=== PATIENT | male | born 1990 | race Caucasian/White ===

== ENCOUNTER → 2017-09-25 | Outpatient (REF) | payer MEDICAID | LOC: M SFHCPLAZ 09:13 | DX: R63.4 Abnormal weight loss (principal) ==

== ENCOUNTER → 2018-11-23 | Outpatient (REF) | payer MEDICAID | LOC: M SFHCPLAZ 09:14 | DX: R45.5 Hostility (principal) ==

== ENCOUNTER → 2019-02-27 | Outpatient (CLI) | payer MEDICAID ==
[2019-02-27 10:58] LABS: ALBUMIN 4.2 GM/DL (3.2-5.2); ALT/SGPT 56 U/L (12-78); BILIRUBIN,TOTAL 1.5 MG/DL (0.2-1.0); BLOOD UREA NITROGEN 19 MG/DL (7-18); CALCIUM LEVEL 9.5 MG/DL (8.5-10.1); CARBON DIOXIDE LEVEL 28 MEQ/L (21-32); CHLORIDE LEVEL 103 MEQ/L (98-107); CHOLESTEROL LEVEL 201 MG/DL (<200); CHOLESTEROL RISK RATIO 4.902 (<5); CREATININE FOR GFR 1.03 MG/DL (0.70-1.30); GLOMERULAR FILTRATION RATE > 60.0 (>60); GLUCOSE, FASTING 85 MG/DL (70-100); HDL CHOLESTEROL 41 MG/DL (>40); LDL CHOLESTEROL 134 MG/DL (<100); NON-HDL-C 160 MG/DL; POTASSIUM SERUM 4.8 MEQ/L (3.5-5.1); SODIUM LEVEL 139 MEQ/L (136-145); TOTAL PROTEIN 7.3 GM/DL (6.4-8.2); TRIGLYCERIDES LEVEL 128 MG/DL (<150)
[2019-02-27 11:03] LABS: BASO % 0.3 % (0.0-1.0); EOS # 0.2 10^3/uL (0.0-0.5); HEMATOCRIT 53.7 % (42.0-52.0); HEMOGLOBIN 17.6 g/dl (13.5-17.5); LYMPH # 1.7 10^3/uL (1.5-5.0); LYMPH % 27.8 % (24.0-44.0); MEAN CORPUSCULAR HEMOGLOBIN 28.9 pg (27.0-33.0); MEAN CORPUSCULAR HGB CONC 32.8 g/dl (32.0-36.5); MEAN CORPUSCULAR VOLUME 88.3 fl (80.0-96.0); MONO # 0.5 10^3/uL (0.0-0.8); MONO % 8.9 % (0.0-5.0); NEUTROPHILS # 3.6 10^3/uL (1.5-8.5); NEUTROPHILS % 59.7 % (36.0-66.0); PLATELET COUNT, AUTOMATED 142 10^3/uL (150-450); RED BLOOD COUNT 6.08 10^6/uL (4.30-6.10)
[2019-02-27 12:10] LABS: HEMOGLOBIN A1c 5.2 %
== END ==
LOC: M WUC 08:32
PROVIDERS: ATTEND Physician Assistant
DX: F84.0 Autistic disorder (principal)

== ENCOUNTER 2019-04-01 09:58 | Emergency (ER) | payer MEDICAID ==
[~2019-04-01] VITALS: Ht 170.2 cm; Wt 81.8 kg
[2019-04-01] MEDS ORDERED: RISP0.5T21 PO (11:13)
[2019-04-01] MEDS ORDERED: VITAD1000T PO (11:13)
--- NOTE | 2019-04-01 12:02 | REP ---
Left tibia and fibula 12: Four views. History: Inability to bear weight. Nonverbal patient. Findings: Four views of the left tibia and fibula demonstrate normal bones, joints, and soft tissues. No fracture or bony destructive lesion is seen. Impression: Negative radiographs of the left calf. Electronically Signed by Kg Mills MD 04/01/2019 11:54 A
--- NOTE | 2019-04-01 12:03 | REP ---
Left ankle series: Four views. History: Inability to bear weight. Comparison study: September 19, 2015. Findings: Four views of the left ankle demonstrate an intact ankle mortise. No fractures seen. No subluxation noted. Bones and joints are unremarkable. Impression: Negative left ankle radiographs. Electronically Signed by Kg Mills MD 04/01/2019 11:54 A
--- NOTE | 2019-04-01 12:04 | REP ---
Left foot series: Four views. History: Inability to bear weight. Findings: Four views of the left foot demonstrate overall mineralization to be normal. Bones, joints and soft tissues are unremarkable. No fracture, subluxation, periosteal reaction, or other acute bony abnormality. Impression: Negative radiographs of the left foot. Electronically Signed by Kg Mills MD 04/01/2019 11:55 A
[2019-04-01 12:41] VITALS: BP 115/74
== END 2019-04-01 12:42 | disposition home or self-care (01) ==
LOC: M ED 09:58
DX: M79.672 Pain in left foot (principal); F84.0 Autistic disorder; Z79.899 Other long term (current) drug therapy

== ENCOUNTER 2019-10-03 14:08 | Emergency (ER) | payer MEDICAID ==
[~2019-10-03] VITALS: Ht 170.2 cm; Wt 83.2 kg
[~2019-10-03 14:08] MED LIST: D31000TA2 PO; RISP0.5T21 PO
[2019-10-03 17:02] VITALS: BP 123/81
--- NOTE | 2019-10-15 16:28 | REP ---
RIGHT FEMUR SERIES: 4-VIEWS HISTORY: Limping. Unexplained. FINDINGS: Four views of the right femur demonstrate normal bones, joints, and soft tissue. No fracture or other acute abnormality. IMPRESSION: Negative radiographs of the right femur. MTDD
--- NOTE | 2019-10-15 16:30 | REP ---
RIGHT TIB-FIB SERIES: 4-VIEWS HISTORY: Limping. Nonverbal patient. FINDINGS: Four views of the right tibia and fibula demonstrate normal bones, joints, and soft tissues. No fracture or subluxation is seen. IMPRESSION: Negative radiographs of the right tibia-fibula. MTDD
--- NOTE | 2019-10-15 16:32 | REP ---
RIGHT FOOT SERIES: Preliminary report is provided at the time of exam by [facility]. HISTORY: Limping. Nonverbal patient. FINDINGS: Four views of the right foot demonstrate overall normal mineralization. Bones, joints, and soft tissues are unremarkable. No fracture or subluxation is seen. IMPRESSION: Negative views of the right foot. MTDD
== END 2019-10-03 17:08 | disposition home or self-care (01) ==
LOC: M ED 14:08
DX: M79.671 Pain in right foot (principal); F84.0 Autistic disorder

== ENCOUNTER 2019-10-07 16:47 | Emergency (ER) | payer MEDICAID ==
[~2019-10-07] VITALS: Ht 170.2 cm; Wt 85.9 kg
[2019-10-07] MEDS ORDERED: ACETAMINOPHEN 500 MG TAB PO ONE (20:00)
[2019-10-07 21:28] LABS: BASO % 0.3 % (0.0-1.0); EOS # 0.2 10^3/uL (0.0-0.5); EOS % 2.3 % (0.0-3.0); HEMATOCRIT 45.6 % (42.0-52.0); HEMOGLOBIN 15.9 g/dl (13.5-17.5); LYMPH # 1.8 10^3/uL (1.5-5.0); LYMPH % 23.7 % (24.0-44.0); MEAN CORPUSCULAR HEMOGLOBIN 29.8 pg (27.0-33.0); MEAN CORPUSCULAR HGB CONC 34.9 g/dl (32.0-36.5); MEAN CORPUSCULAR VOLUME 85.4 fl (80.0-96.0); MONO # 0.6 10^3/uL (0.0-0.8); MONO % 7.6 % (0.0-5.0); NEUTROPHILS # 4.9 10^3/uL (1.5-8.5); NEUTROPHILS % 65.6 % (36.0-66.0); PLATELET COUNT, AUTOMATED 141 10^3/uL (150-450); RED BLOOD COUNT 5.34 10^6/uL (4.30-6.10); WHITE BLOOD COUNT 7.5 10^3/uL (4.0-10.0)
[2019-10-07 21:56] LABS: BLOOD UREA NITROGEN 17 MG/DL (7-18); C REACTIVE PROTEIN QUANTITATIV 3.54 MG/DL (0.00-0.30); CARBON DIOXIDE LEVEL 28 MEQ/L (21-32); CHLORIDE LEVEL 102 MEQ/L (98-107); CREATININE FOR GFR 0.84 MG/DL (0.70-1.30); GLOMERULAR FILTRATION RATE > 60.0 (>60); GLUCOSE, FASTING 239 MG/DL (70-100); POTASSIUM SERUM 3.5 MEQ/L (3.5-5.1); SODIUM LEVEL 135 MEQ/L (136-145)
[2019-10-07 22:10] LABS: ERYTHROCYTE SEDIMENTATION RATE 5 mm/hr (0-15)
[2019-10-07 22:55] VITALS: BP 124/72
--- NOTE | 2019-10-15 16:34 | REP ---
CT RIGHT FOOT HISTORY: Swelling. Will not bear weight. COMPARISON: Plain films 10/03/2019. FINDINGS: Axial CT imaging of the right foot is performed with sagittal and coronal reconstruction images. The study is limited due to patient motion. There are particularly limitations in the evaluation of the metatarsals and phalanges with extensive blurring of these structures. Subtle fracture of the metatarsals and phalanges cannot totally be excluded. Otherwise no acute fracture or dislocation is seen. There is some erosive change at the proximal articular surface of the navicular bone, at the talonavicular joint. Subchondral cystic changes are noted with diameter of approximately 1 cm. The diameter of the articular surface involved is approximately 6 mm. There is mild soft tissue edema in the region of the heel. A preliminary report was provided by [facility] at the time of the exam. [facility]
--- NOTE | 2019-10-16 12:56 | ED PDOC ---
Post-Departure Follow-Up ish albarran and tito faxed formal report of ct foot for fu Kat Castaneda MD Oct 16, 2019 12:56
== END 2019-10-07 22:54 | disposition home or self-care (01) ==
LOC: M ED 16:47
DX: M25.571 Pain in right ankle and joints of right foot (principal); R22.41 Localized swelling, mass and lump, right lower limb; F84.0 Autistic disorder; Z79.899 Other long term (current) drug therapy

== ENCOUNTER → 2020-07-22 | Outpatient (REF) | payer MEDICAID ==
[2020-07-22 11:24] LABS: BASO % 0.2 % (0.0-1.0); EOS # 0.1 10^3/uL (0.0-0.5); EOS % 1.4 % (0.0-3.0); HEMATOCRIT 52.5 % (42.0-52.0); HEMOGLOBIN 17.2 g/dl (13.5-17.5); LYMPH # 1.3 10^3/uL (1.5-5.0); LYMPH % 22.1 % (24.0-44.0); MEAN CORPUSCULAR HEMOGLOBIN 28.9 pg (27.0-33.0); MEAN CORPUSCULAR HGB CONC 32.8 g/dl (32.0-36.5); MEAN CORPUSCULAR VOLUME 88.1 fl (80.0-96.0); MONO # 0.5 10^3/uL (0.0-0.8); MONO % 8.4 % (2.0-8.0); NEUTROPHILS # 3.9 10^3/uL (1.5-8.5); NEUTROPHILS % 67.5 % (36.0-66.0); PLATELET COUNT, AUTOMATED 153 10^3/uL (150-450); RED BLOOD COUNT 5.96 10^6/uL (4.30-6.10); WHITE BLOOD COUNT 5.7 10^3/uL (4.0-10.0)
[2020-07-22 12:06] LABS: ALBUMIN 4.1 GM/DL (3.2-5.2); ALT/SGPT 42 U/L (12-78); BILIRUBIN,TOTAL 1.3 MG/DL (0.2-1.0); BLOOD UREA NITROGEN 14 MG/DL (7-18); CALCIUM LEVEL 9.7 MG/DL (8.5-10.1); CARBON DIOXIDE LEVEL 32 MEQ/L (21-32); CHLORIDE LEVEL 101 MEQ/L (98-107); CHOLESTEROL LEVEL 157 MG/DL (<200); CHOLESTEROL RISK RATIO 4.243 (<5); CREATININE FOR GFR 0.89 MG/DL (0.70-1.30); GLOMERULAR FILTRATION RATE > 60.0 (>60); GLUCOSE, FASTING 88 MG/DL (70-100); HDL CHOLESTEROL 37 MG/DL (>40); LDL CHOLESTEROL 98 MG/DL (<100); NON-HDL-C 120 MG/DL; POTASSIUM SERUM 4.8 MEQ/L (3.5-5.1); SODIUM LEVEL 138 MEQ/L (136-145); TOTAL PROTEIN 7.4 GM/DL (6.4-8.2); TRIGLYCERIDES LEVEL 112 MG/DL (<150)
[2020-07-22 12:09] LABS: PROLACTIN 13.8 NG/ML (2.1-17.7)
[2020-07-22 12:56] LABS: HEMOGLOBIN A1c 5.1 %
== END ==
LOC: M LABDRWAD 10:21
PROVIDERS: ATTEND Physician Assistant
DX: Z79.899 Other long term (current) drug therapy (principal)

== ENCOUNTER → 2021-07-16 | Outpatient (REF) | payer MEDICAID ==
[~2021-07-16] MED LIST changes: -D31000TA2 PO; +VITA100093 PO
[2021-07-16 13:59] LABS: ALBUMIN 4.1 GM/DL (3.2-5.2); ALT/SGPT 107 U/L (12-78); BILIRUBIN,TOTAL 1.1 MG/DL (0.2-1.0); BLOOD UREA NITROGEN 18 MG/DL (7-18); CALCIUM LEVEL 10.6 MG/DL (8.5-10.1); CARBON DIOXIDE LEVEL 27 MEQ/L (21-32); CHLORIDE LEVEL 103 MEQ/L (98-107); CHOLESTEROL LEVEL 188 MG/DL (<200); CHOLESTEROL RISK RATIO 5.875 (<5); CREATININE FOR GFR 1.06 MG/DL (0.70-1.30); GLOMERULAR FILTRATION RATE > 60.0 (>60); GLUCOSE, FASTING 99 MG/DL (70-100); HDL CHOLESTEROL 32 MG/DL (>40); LDL CHOLESTEROL 110 MG/DL (<100); NON-HDL-C 156 MG/DL; POTASSIUM SERUM 4.3 MEQ/L (3.5-5.1); SODIUM LEVEL 139 MEQ/L (136-145); TOTAL PROTEIN 7.4 GM/DL (6.4-8.2); TRIGLYCERIDES LEVEL 231 MG/DL (<150)
== END ==
LOC: M SFHCADAM 08:46
PROVIDERS: ATTEND Student in an Organized Health Care Education/Training Program
DX: Z79.899 Other long term (current) drug therapy (principal)

== ENCOUNTER → 2021-08-03 | Outpatient (CLI) | payer MEDICAID ==
[2021-08-03 08:52] LABS: ALT/SGPT 102 U/L (12-78); BILIRUBIN,TOTAL 1.3 MG/DL (0.2-1.0); BLOOD UREA NITROGEN 14 MG/DL (7-18); CALCIUM LEVEL 10.4 MG/DL (8.5-10.1); CARBON DIOXIDE LEVEL 29 MEQ/L (21-32); CHLORIDE LEVEL 105 MEQ/L (98-107); CHOLESTEROL LEVEL 206 MG/DL (<200); CHOLESTEROL RISK RATIO 6.645 (<5); CREATININE FOR GFR 1.06 MG/DL (0.70-1.30); GLOMERULAR FILTRATION RATE > 60.0 (>60); GLUCOSE, FASTING 101 MG/DL (70-100); HDL CHOLESTEROL 31 MG/DL (>40); LDL CHOLESTEROL 110 MG/DL (<100); NON-HDL-C 175 MG/DL; POTASSIUM SERUM 4.5 MEQ/L (3.5-5.1); SODIUM LEVEL 141 MEQ/L (136-145); TOTAL PROTEIN 7.4 GM/DL (6.4-8.2); TRIGLYCERIDES LEVEL 326 MG/DL (<150)
== END ==
LOC: M RAD 07:46
PROVIDERS: ATTEND Student in an Organized Health Care Education/Training Program
DX: R74.01 Elevation of levels of liver transaminase levels (principal)

== ENCOUNTER 2021-08-25 22:34 | Emergency (ER) | payer MEDICAID ==
[~2021-08-25] VITALS: Ht 167.6 cm; Wt 84.5 kg
[2021-08-26 04:12] LABS: BASO % 0.3 % (0.0-1.0); EOS # 0.1 10^3/uL (0.0-0.5); EOS % 1.2 % (0.0-3.0); HEMATOCRIT 48.7 % (42.0-52.0); HEMOGLOBIN 16.8 g/dl (13.5-17.5); LYMPH % 17.9 % (24.0-44.0); MEAN CORPUSCULAR HEMOGLOBIN 29.5 pg (27.0-33.0); MEAN CORPUSCULAR HGB CONC 34.5 g/dl (32.0-36.5); MEAN CORPUSCULAR VOLUME 85.6 fl (80.0-96.0); MONO # 0.9 10^3/uL (0.0-0.8); MONO % 8.3 % (2.0-8.0); NEUTROPHILS # 8.1 10^3/uL (1.5-8.5); NEUTROPHILS % 71.8 % (36.0-66.0); PLATELET COUNT, AUTOMATED 143 10^3/uL (150-450); RED BLOOD COUNT 5.69 10^6/uL (4.30-6.10); WHITE BLOOD COUNT 11.2 10^3/uL (4.0-10.0)
[2021-08-26 04:50] LABS: ALT/SGPT 62 U/L (12-78); BILIRUBIN,DIRECT 0.3 MG/DL (0.0-0.2); BILIRUBIN,TOTAL 1.5 MG/DL (0.2-1.0); BLOOD UREA NITROGEN 21 MG/DL (7-18); CALCIUM LEVEL 9.9 MG/DL (8.5-10.1); CARBON DIOXIDE LEVEL 32 MEQ/L (21-32); CHLORIDE LEVEL 100 MEQ/L (98-107); CREATININE FOR GFR 1.04 MG/DL (0.70-1.30); GLOMERULAR FILTRATION RATE > 60.0 (>60); GLUCOSE, FASTING 99 MG/DL (70-100); SODIUM LEVEL 138 MEQ/L (136-145); TOTAL PROTEIN 7.4 GM/DL (6.4-8.2)
[2021-08-26 12:10] VITALS: BP 111/72
[2021-08-26] MEDS ORDERED: PANTOPRAZOLE 40MG VIAL IV ONE (12:45)
[2021-08-26] MEDS ORDERED: ISOVUE-370 76% 100ML VIAL As Ordered ONE (14:41)
[2021-08-26] MEDS ORDERED: KETOROLAC 30 MG/ML 1ML VIAL IV ONE (15:40)
[2021-08-26] MEDS ORDERED: NS 1,000 ML IV ONE (15:45)
[2021-08-26] MEDS ORDERED: LIPI20TA PO (17:02)
[2021-08-26] MEDS ORDERED: HOME MED LIST COMPLETE! XX SCH (17:05)
[2021-08-26] MEDS ORDERED: DOXYCYCLINE HYCLATE 100 MG in D5W MINI-BAG PLUS 100 ML IV ONE (17:20)
[2021-08-26] MEDS ORDERED: DOXY-443 PO (17:24)
[2021-08-26] MEDS ORDERED: OMEP-173 PO (17:50)
== END 2021-08-26 19:16 | disposition home or self-care (01) ==
LOC: M ED 22:34
DX: J18.9 Pneumonia, unspecified organism (principal); K21.9 Gastro-esophageal reflux disease without esophagitis; R00.0 Tachycardia, unspecified; Z79.02 Long term (current) use of antithrombotics/antiplatelets; Z79.899 Other long term (current) drug therapy
CPT/HCPCS: 71046; 71275; 74177; 80048; 80076; 83605; 84443; 85025; 85379; 87040; 87486; 87581; 87633; 87798; 93005; 96365; 96366; 96375; 99284; C9113; J1885; Q9967

== ENCOUNTER → 2021-09-02 | Outpatient (REF) | payer MEDICAID ==
[~2021-09-02] MED LIST changes: +DOXY-443 PO; +LIPI20TA PO; +OMEP-173 PO
[2021-09-02 10:32] LABS: HEMATOCRIT 49.2 % (42.0-52.0); MEAN CORPUSCULAR HEMOGLOBIN 29.1 pg (27.0-33.0); MEAN CORPUSCULAR HGB CONC 34.6 g/dl (32.0-36.5); MEAN CORPUSCULAR VOLUME 84.1 fl (80.0-96.0); PLATELET COUNT, AUTOMATED 163 10^3/uL (150-450); RED BLOOD COUNT 5.85 10^6/uL (4.30-6.10); WHITE BLOOD COUNT 7.1 10^3/uL (4.0-10.0)
[2021-09-02 11:08] LABS: ALBUMIN 3.9 GM/DL (3.2-5.2); ALT/SGPT 80 U/L (12-78); BILIRUBIN,DIRECT 0.2 MG/DL (0.0-0.2); CALCIUM LEVEL 10.3 MG/DL (8.5-10.1); PHOSPHORUS LEVEL 2.8 MG/DL (2.5-4.9); TOTAL PROTEIN 7.2 GM/DL (6.4-8.2)
[2021-09-02 11:23] LABS: HEPATITIS B SURFACE ANTIBODY POSITIVE (POSITIVE); PTH INTACT 28.1 PG/ML (18.5-88.0); TOTAL 25(OH) VITAMIN D 27.8 NG/ML (30.0-100.0)
[2021-09-02 11:35] LABS: HEPATITIS B SURFACE ANTIGEN NEGATIVE (NEGATIVE)
[2021-09-02 11:59] LABS: HEPATITIS C VIRUS ABY INDEX < 0.0 INDEX (<0.8)
[2021-09-02 12:02] LABS: HEPATITIS B CORE ANTIBODY IGM NEGATIVE (NEGATIVE)
[2021-09-03 13:10] LABS: HEPATITIS C QUANTITATION HCV Not Detected IU/mL (.)
== END ==
LOC: M SFHCADAM 08:32
PROVIDERS: ATTEND Student in an Organized Health Care Education/Training Program
DX: E83.52 Hypercalcemia (principal); R74.01 Elevation of levels of liver transaminase levels

== ENCOUNTER → 2022-02-15 | Outpatient (REF) | payer MEDICAID ==
[2022-02-17 15:09] LABS: VITAMIN D 1,25 DIHYDROXY 46.8 pg/mL (24.8-81.5)
== END ==
LOC: M SFHCPLAZ 09:26
PROVIDERS: ATTEND Family Medicine
DX: E83.52 Hypercalcemia (principal)

== ENCOUNTER → 2022-09-23 | Outpatient (REF) | payer MEDICAID | LOC: M SFHCPLAZ 11:46 | PROVIDERS: ATTEND Family Medicine | DX: E78.1 Pure hyperglyceridemia (principal); E55.9 Vitamin D deficiency, unspecified; Z13.1 Encounter for screening for diabetes mellitus; K76.0 Fatty (change of) liver, not elsewhere classified ==

== ENCOUNTER → 2023-02-21 | Outpatient (CLI) | payer MEDICAID ==
[2023-02-21 15:15] LABS: BASO % 0.3 % (0.0-1.0); EOS # 0.2 10^3/uL (0.0-0.5); EOS % 3.3 % (0.0-3.0); HEMATOCRIT 50.5 % (42.0-52.0); HEMOGLOBIN 17.2 g/dl (13.5-17.5); LYMPH # 2.3 10^3/uL (1.5-5.0); LYMPH % 32.3 % (24.0-44.0); MEAN CORPUSCULAR HEMOGLOBIN 28.9 pg (27.0-33.0); MEAN CORPUSCULAR HGB CONC 34.1 g/dl (32.0-36.5); MEAN CORPUSCULAR VOLUME 84.9 fl (80.0-96.0); MONO # 0.6 10^3/uL (0.0-0.8); MONO % 7.8 % (2.0-8.0); NEUTROPHILS # 3.9 10^3/uL (1.5-8.5); NEUTROPHILS % 55.9 % (36.0-66.0); PLATELET COUNT, AUTOMATED 141 10^3/uL (150-450); RED BLOOD COUNT 5.95 10^6/uL (4.30-6.10)
[2023-02-21 15:37] LABS: HEMOGLOBIN A1c 5.8 % (4.0-6.0)
[2023-02-21 15:45] LABS: PROLACTIN 12.06 NG/ML (2.1-17.7)
[2023-02-21 15:47] LABS: ALBUMIN 4.1 G/DL (3.2-5.2); ALKALINE PHOSPHATASE 132 U/L (46-116); ALT/SGPT 73 U/L (7.0-40); AST/SGOT 32 U/L (<34); BILIRUBIN,TOTAL 1.3 MG/DL (0.3-1.2); BLOOD UREA NITROGEN 22 MG/DL (9-23); CALCIUM LEVEL 9.7 MG/DL (8.5-10.1); CARBON DIOXIDE LEVEL 31 MMOL/L (20-31); CHLORIDE LEVEL 105 MMOL/L (98-107); CHOLESTEROL LEVEL 144 MG/DL (<200); CHOLESTEROL RISK RATIO 4.58 (<5); CREATININE FOR GFR 0.95 MG/DL (0.70-1.30); GLOMERULAR FILTRATION RATE > 60.0 (>60); GLUCOSE, FASTING 97 MG/DL (60-100); HDL CHOLESTEROL 31.4 MG/DL (>40); NON-HDL-C 112.6 MG/DL; POTASSIUM SERUM 4.2 MMOL/L (3.5-5.1); SODIUM LEVEL 141 MMOL/L (136-145); TOTAL PROTEIN 6.8 G/DL (5.7-8.2); TRIGLYCERIDES LEVEL 243 MG/DL (<150)
== END ==
LOC: M PLALAB 09:06
PROVIDERS: ATTEND Physician Assistant
DX: Z79.899 Other long term (current) drug therapy (principal)

== ENCOUNTER → 2023-07-18 | Outpatient (REF) | payer MEDICAID ==
[~2023-07-18] MED LIST changes: +DOXY-323 PO; -DOXY-443 PO
[2023-07-18 15:13] LABS: THYROID STIMULATING HORMONE 2.199 uIU/ML (0.55-4.78); TOTAL 25(OH) VITAMIN D 36.9 NG/ML (20.0-100.0)
[2023-07-18 15:23] LABS: ALBUMIN 3.8 G/DL (3.2-5.2); ALKALINE PHOSPHATASE 148 U/L (46-116); ALT/SGPT 81 U/L (7.0-40); AST/SGOT 38 U/L (<34); BILIRUBIN,TOTAL 1.1 MG/DL (0.3-1.2); BLOOD UREA NITROGEN 15 MG/DL (9-23); CALCIUM LEVEL 10.2 MG/DL (8.5-10.1); CARBON DIOXIDE LEVEL 28 MMOL/L (20-31); CHLORIDE LEVEL 103 MMOL/L (98-107); CHOLESTEROL LEVEL 126 MG/DL (<200); CHOLESTEROL RISK RATIO 4.14 (<5); CREATININE FOR GFR 0.82 MG/DL (0.70-1.30); GLOMERULAR FILTRATION RATE > 60.0 (>60); GLUCOSE, FASTING 112 MG/DL (60-100); HDL CHOLESTEROL 30.4 MG/DL (>40); LDL CHOLESTEROL 42.6 MG/DL (<100); NON-HDL-C 95.6 MG/DL; SODIUM LEVEL 141 MMOL/L (136-145); TOTAL PROTEIN 6.8 G/DL (5.7-8.2); TRIGLYCERIDES LEVEL 265 MG/DL (<150)
== END ==
LOC: M SFHCADAM 08:37
PROVIDERS: ATTEND Physician Assistant Medical
DX: E78.1 Pure hyperglyceridemia (principal); K76.0 Fatty (change of) liver, not elsewhere classified; E55.9 Vitamin D deficiency, unspecified

== ENCOUNTER → 2023-08-24 | Outpatient (CLI) | payer MEDICAID | LOC: M RAD 09:29 | PROVIDERS: ATTEND Physician Assistant Medical | DX: K76.0 Fatty (change of) liver, not elsewhere classified (principal); R79.89 Other specified abnormal findings of blood chemistry ==

== ENCOUNTER → 2023-11-09 | Outpatient (REF) | payer MEDICAID ==
[~2023-11-09] MED LIST changes: -DOXY-323 PO; +DOXY-441 PO
[2023-11-09 18:45] LABS: URIC ACID 9.9 MG/DL (3.7-9.2)
[2023-11-09 18:47] LABS: C REACTIVE PROTEIN QUANTITATIV 0.9 MG/DL (<1.0)
== END ==
LOC: M SFHCADAM 13:25
PROVIDERS: ATTEND Physician Assistant Medical
DX: M25.571 Pain in right ankle and joints of right foot (principal)

== ENCOUNTER → 2023-11-09 | Outpatient (CLI) | payer MEDICAID | LOC: M ADAMS 13:35 | PROVIDERS: ATTEND Physician Assistant Medical | DX: M25.571 Pain in right ankle and joints of right foot (principal) ==

== ENCOUNTER → 2023-11-27 | Outpatient (REF) | payer MEDICAID ==
[2023-11-27 12:56] LABS: LIPASE 42 U/L (12-53)
[2023-11-27 12:57] LABS: FREE T4 1.74 NG/DL (0.89-1.76); THYROID STIMULATING HORMONE 1.232 uIU/ML (0.55-4.78)
[2023-11-27 12:58] LABS: ALBUMIN 3.8 G/DL (3.2-5.2); ALKALINE PHOSPHATASE 154 U/L (46-116); ALT/SGPT 128 U/L (7.0-40); AST/SGOT 60 U/L (<34); BILIRUBIN,TOTAL 1.1 MG/DL (0.3-1.2); BLOOD UREA NITROGEN 17 MG/DL (9-23); CALCIUM LEVEL 11.1 MG/DL (8.5-10.1); CARBON DIOXIDE LEVEL 32 MMOL/L (20-31); CHLORIDE LEVEL 102 MMOL/L (98-107); CREATININE FOR GFR 0.89 MG/DL (0.70-1.30); GLOMERULAR FILTRATION RATE > 60.0 (>60); GLUCOSE, FASTING 120 MG/DL (60-100); POTASSIUM SERUM 3.9 MMOL/L (3.5-5.1); SODIUM LEVEL 140 MMOL/L (136-145); TOTAL PROTEIN 7.1 G/DL (5.7-8.2)
[2023-11-27 12:59] LABS: TOTAL 25(OH) VITAMIN D 40.1 NG/ML (20.0-100.0)
[2023-11-27 13:00] LABS: BASO % 0.3 % (0.0-1.0); EOS # 0.1 10^3/uL (0.0-0.5); EOS % 1.7 % (0.0-3.0); LYMPH # 1.5 10^3/uL (1.5-5.0); LYMPH % 21.5 % (24.0-44.0); MEAN CORPUSCULAR HEMOGLOBIN 28.2 pg (27.0-33.0); MEAN CORPUSCULAR HGB CONC 33.3 g/dl (32.0-36.5); MEAN CORPUSCULAR VOLUME 84.5 fl (80.0-96.0); MONO # 0.7 10^3/uL (0.0-0.8); MONO % 9.4 % (2.0-8.0); NEUTROPHILS # 4.6 10^3/uL (1.5-8.5); NEUTROPHILS % 66.7 % (36.0-66.0); PLATELET COUNT, AUTOMATED 130 10^3/uL (150-450); RED BLOOD COUNT 5.68 10^6/uL (4.30-6.10); WHITE BLOOD COUNT 6.9 10^3/uL (4.0-10.0)
[2023-11-27 13:04] LABS: URIC ACID 8.2 MG/DL (3.7-9.2)
[2023-11-27 13:12] LABS: ERYTHROCYTE SEDIMENTATION RATE 30 mm/hr (0-15)
== END ==
LOC: M SFHCADAM 10:03
PROVIDERS: ATTEND Physician Assistant Medical
DX: M10.071 Idiopathic gout, right ankle and foot (principal); K76.0 Fatty (change of) liver, not elsewhere classified; K82.8 Other specified diseases of gallbladder; M25.571 Pain in right ankle and joints of right foot

== ENCOUNTER 2023-12-27 16:29 | Emergency (ER) | payer MEDICAID ==
[2023-12-27 17:49] LABS: BASO % 0.2 % (0.0-1.0); EOS % 0.2 % (0.0-3.0); HEMATOCRIT 48.4 % (42.0-52.0); HEMOGLOBIN 16.6 g/dl (13.5-17.5); LYMPH # 1.1 10^3/uL (1.5-5.0); MEAN CORPUSCULAR HEMOGLOBIN 28.5 pg (27.0-33.0); MEAN CORPUSCULAR HGB CONC 34.3 g/dl (32.0-36.5); MONO # 0.5 10^3/uL (0.0-0.8); MONO % 2.9 % (2.0-8.0); NEUTROPHILS # 16.3 10^3/uL (1.5-8.5); NEUTROPHILS % 90.2 % (36.0-66.0); PLATELET COUNT, AUTOMATED 169 10^3/uL (150-450); RED BLOOD COUNT 5.83 10^6/uL (4.30-6.10); WHITE BLOOD COUNT 18.1 10^3/uL (4.0-10.0)
[2023-12-27 18:07] LABS: INR 1.06; PROTHROMBIN TIME 14.2 SECONDS (12.5-14.5)
[2023-12-27 18:10] LABS: ALBUMIN 3.3 G/DL (3.2-5.2); ALKALINE PHOSPHATASE 111 U/L (40-129); ALT/SGPT 57 U/L (7.0-40); AST/SGOT 28 U/L (<34); BILIRUBIN,DIRECT 0.5 MG/DL (<0.4); BILIRUBIN,TOTAL 1.8 MG/DL (0.3-1.2); BLOOD UREA NITROGEN 22 MG/DL (9-23); CALCIUM LEVEL 9.6 MG/DL (8.5-10.1); CARBON DIOXIDE LEVEL 29 MMOL/L (20-31); CHLORIDE LEVEL 100 MMOL/L (98-107); CREATININE FOR GFR 0.99 MG/DL (0.70-1.30); GLOMERULAR FILTRATION RATE > 60.0 (>60); GLUCOSE, FASTING 183 MG/DL (60-100); POTASSIUM SERUM 4.4 MMOL/L (3.5-5.1); SODIUM LEVEL 139 MMOL/L (136-145)
[2023-12-27] MEDS ORDERED: ISOVUE-370 76% 100ML VIAL As Ordered ONE (18:56)
[2023-12-28 00:22] VITALS: O2SAT 95
[2023-12-28 00:30] VITALS: BP 118/70; TEMP 97.9; O2SAT 93
== END 2023-12-28 00:38 | disposition home or self-care (01) ==
LOC: M ED 16:29 → EDBD 16:29 → M ED 12-28 00:38
DX: R05.9 Cough, unspecified (principal); L30.9 Dermatitis, unspecified; R00.0 Tachycardia, unspecified; F84.0 Autistic disorder; E78.5 Hyperlipidemia, unspecified; Z79.02 Long term (current) use of antithrombotics/antiplatelets; Z79.899 Other long term (current) drug therapy
CPT/HCPCS: 36415; 71045; 71275; 80048; 80076; 85025; 85610; 87486; 87581; 87633; 87798; 93005; 93041; 94760; 99285; Q9967

== ENCOUNTER → 2023-12-27 | Outpatient (REF) | payer MEDICAID | LOC: M SFHCADAM 12:58 | PROVIDERS: ATTEND Physician Assistant | DX: A41.9 Sepsis, unspecified organism (principal); R65.10 Systemic inflammatory response syndrome (SIRS) of non-infectious origin without acute organ dysfunction ==

== ENCOUNTER → 2024-01-12 | Outpatient (REF) | payer MEDICAID | LOC: M LAB REF 21:32 | PROVIDERS: ATTEND Physician Assistant Medical | DX: B34.9 Viral infection, unspecified (principal) ==

== ENCOUNTER 2024-01-24 11:50 | Observation (INO) | payer MEDICAID ==
[~2024-01-24] VITALS: Ht 170.2 cm; Wt 84.1 kg
[2024-01-24 12:42] LABS: ABG BASE EXCESS 5.1 (-2.0-2.0); ABG HCO3 28.8 MMOL/L (22.0-26.0); ABG O2 SATURATION 91.7 % (95.0-99.0); ABG PARTIAL PRESSURE CO2 39.4 mmHg (35.0-45.0); ABG PARTIAL PRESSURE O2 60.5 mmHg (75.0-100.0); ABG STANDARD HCO3 28.8 MMOL/L. (22.0-26.0); ABG pH (ARTERIAL) 7.482 UNITS (7.350-7.450)
[2024-01-24 15:28] LABS: BASO % 0.2 % (0.0-1.0); EOS # 0.1 10^3/uL (0.0-0.5); EOS % 0.3 % (0.0-3.0); HEMATOCRIT 50.2 % (42.0-52.0); HEMOGLOBIN 16.9 g/dl (13.5-17.5); LYMPH # 3.1 10^3/uL (1.5-5.0); LYMPH % 17.4 % (24.0-44.0); MEAN CORPUSCULAR HEMOGLOBIN 28.3 pg (27.0-33.0); MEAN CORPUSCULAR HGB CONC 33.7 g/dl (32.0-36.5); MEAN CORPUSCULAR VOLUME 84.1 fl (80.0-96.0); MONO # 1.1 10^3/uL (0.0-0.8); MONO % 6.2 % (2.0-8.0); NEUTROPHILS # 13.3 10^3/uL (1.5-8.5); NEUTROPHILS % 74.9 % (36.0-66.0); PLATELET COUNT, AUTOMATED 198 10^3/uL (150-450); RED BLOOD COUNT 5.97 10^6/uL (4.30-6.10); WHITE BLOOD COUNT 17.8 10^3/uL (4.0-10.0)
[2024-01-24 15:59] LABS: BLOOD UREA NITROGEN 25 MG/DL (9-23); CALCIUM LEVEL 10.1 MG/DL (8.5-10.1); CARBON DIOXIDE LEVEL 34 MMOL/L (20-31); CHLORIDE LEVEL 98 MMOL/L (98-107); CREATININE FOR GFR 0.84 MG/DL (0.70-1.30); GLOMERULAR FILTRATION RATE > 60.0 (>60); GLUCOSE, FASTING 104 MG/DL (60-100); POTASSIUM SERUM 3.6 MMOL/L (3.5-5.1); SODIUM LEVEL 143 MMOL/L (136-145)
[2024-01-24] MEDS: DOXYCYCLINE HYCLATE 100MG TABLET PO ONE (16:25)
[2024-01-24] MEDS: cefTRIAXone SOD 1 GM in DEXTROSE 5% (D5W) ADV/MINI-BAG 50 ML IV ONE (16:26)
[2024-01-24] MEDS: LR 1,000 ML IV ONE (17:02)
[2024-01-24] MEDS ORDERED: D 1010004 PO (17:03)
[2024-01-24] MEDS ORDERED: NYST1POW3 TOP (17:03)
[2024-01-24] MEDS ORDERED: ALLO100T PO (17:03)
[2024-01-24] MEDS ORDERED: IBUP200T46 PO (17:03)
[2024-01-24] MEDS ORDERED: OMEG10002 PO (17:03)
[2024-01-24] MEDS ORDERED: OMEP-173 PO (17:03)
[2024-01-24] MEDS ORDERED: HOME MED LIST COMPLETE! XX SCH (17:05)
[2024-01-24 17:37] LABS: PROCALCITONIN 0.05 ng/ml
[2024-01-24] MEDS: ATORVASTATIN 20 MG TAB PO SCH (21:20)
[2024-01-24] MEDS: BENZONATATE 100MG CAPSULE PO SCH (21:20)
[2024-01-24] MEDS: PIPERACILLIN/TAZOBACTAM SOD 3.375 GM in DEXTROSE 5% (D5W) ADV/MINI-BAG 50 ML IV SCH (21:21)
[2024-01-24] MEDS: allopurinoL 100 MG TAB PO SCH (21:21)
[2024-01-24] MEDS: OMEPRAZOLE 20MG CAP PO SCH (21:21)
[2024-01-24] MEDS: risperiDONE 0.5 MG TAB PO SCH (21:24)
[2024-01-24 21:33] VITALS: BP 131/94; TEMP 98.4; O2SAT 93
[2024-01-24] MEDS: DEXTROMETHORPHAN 60MG/10ML SUSP 90ML BTL(DELSYM) PO PRN (22:49)
[2024-01-24] MEDS: IPRATROPIUM 0.5MG/ALBUTEROL 2.5MG INH SOL UD 3ML (DUONEB) NEB PRN (22:56)
[2024-01-25] MEDS ORDERED: RAMELTEON 8 MG TAB (ROZEREM) PO PRN (01:55)
[2024-01-25 04:46] VITALS: BP 109/69; TEMP 97.7; O2SAT 92
[2024-01-25 06:47] LABS: HEMATOCRIT 47.6 % (42.0-52.0); HEMOGLOBIN 15.9 g/dl (13.5-17.5); MEAN CORPUSCULAR HEMOGLOBIN 27.9 pg (27.0-33.0); MEAN CORPUSCULAR HGB CONC 33.4 g/dl (32.0-36.5); MEAN CORPUSCULAR VOLUME 83.7 fl (80.0-96.0); PLATELET COUNT, AUTOMATED 155 10^3/uL (150-450); RED BLOOD COUNT 5.69 10^6/uL (4.30-6.10); WHITE BLOOD COUNT 8.9 10^3/uL (4.0-10.0)
[2024-01-25 07:17] LABS: BLOOD UREA NITROGEN 21 MG/DL (9-23); CALCIUM LEVEL 9.2 MG/DL (8.5-10.1); CARBON DIOXIDE LEVEL 34 MMOL/L (20-31); CHLORIDE LEVEL 100 MMOL/L (98-107); GLOMERULAR FILTRATION RATE > 60.0 (>60); GLUCOSE, FASTING 106 MG/DL (60-100); POTASSIUM SERUM 3.7 MMOL/L (3.5-5.1); SODIUM LEVEL 141 MMOL/L (136-145)
[2024-01-25] MEDS: DOXYCYCLINE HYCLATE 100MG TABLET PO SCH (08:45)
[2024-01-25] MEDS: ENOXAPARIN 40MG/0.4ML SYRINGE (J1650 PER 10MG) SC SCH (08:46)
[2024-01-25] MEDS ORDERED: AMOX875T2 PO (11:49)
[2024-01-25] MEDS ORDERED: ROBI1LIQ9 PO (11:49)
[2024-01-25] MEDS ORDERED: DOXY-440 PO (11:49)
[2024-01-25 12:00] VITALS: BP 118/88; TEMP 97.9; O2SAT 93
== END 2024-01-25 12:30 | disposition home or self-care (01) ==
LOC: M ED 11:50 → M ED INP 11:51 → M MS5PR 21:00
PROVIDERS: ADMIT Internal Medicine; ATTEND Internal Medicine
DX: J18.9 Pneumonia, unspecified organism (principal); R09.02 Hypoxemia; F84.0 Autistic disorder; F79 Unspecified intellectual disabilities; F91.3 Oppositional defiant disorder; K75.81 Nonalcoholic steatohepatitis (NASH); M10.9 Gout, unspecified; K21.9 Gastro-esophageal reflux disease without esophagitis; E78.5 Hyperlipidemia, unspecified; Z79.899 Other long term (current) drug therapy; Z79.2 Long term (current) use of antibiotics
CPT/HCPCS: 36415; 36600; 71045; 71250; 80048; 82803; 83605; 84145; 85025; 85027; 87040; 87486; 87581; 87633; 87641; 87798; 92610; 96365; 96366; 96367; 96372; 96375; 99215; 99285; J0696; J1650; J2543

== ENCOUNTER → 2024-02-08 | Outpatient (REF) | payer MEDICAID ==
[~2024-02-08] MED LIST changes: +ALLO100T PO; +AMOX875T2 PO; +D 1010004 PO; +DOXY-440 PO; +IBUP200T46 PO; +NYST1POW3 TOP; +OMEG10002 PO; +ROBI1LIQ9 PO
[2024-02-08 17:39] LABS: HEMATOCRIT 47.9 % (42.0-52.0); HEMOGLOBIN 16.1 g/dl (13.5-17.5); MEAN CORPUSCULAR HEMOGLOBIN 28.5 pg (27.0-33.0); MEAN CORPUSCULAR HGB CONC 33.6 g/dl (32.0-36.5); MEAN CORPUSCULAR VOLUME 84.8 fl (80.0-96.0); PLATELET COUNT, AUTOMATED 162 10^3/uL (150-450); RED BLOOD COUNT 5.65 10^6/uL (4.30-6.10); WHITE BLOOD COUNT 6.6 10^3/uL (4.0-10.0)
[2024-02-08 17:47] LABS: ERYTHROCYTE SEDIMENTATION RATE 13 mm/hr (0-15)
[2024-02-08 17:54] LABS: URIC ACID 7.1 MG/DL (3.7-9.2)
[2024-02-08 17:56] LABS: C REACTIVE PROTEIN QUANTITATIV < 0.50 MG/DL (<1.0)
== END ==
LOC: M SFHCADAM 14:58
PROVIDERS: ATTEND Physician Assistant Medical
DX: M10.9 Gout, unspecified (principal)

== ENCOUNTER → 2024-02-15 | Outpatient (REF) | payer MEDICAID ==
[2024-02-15 13:06] LABS: URIC ACID 7.4 MG/DL (3.7-9.2)
[2024-02-15 13:09] LABS: BASO % 0.3 % (0.0-1.0); EOS # 0.4 10^3/uL (0.0-0.5); EOS % 7.4 % (0.0-3.0); HEMATOCRIT 48.4 % (42.0-52.0); HEMOGLOBIN 16.1 g/dl (13.5-17.5); LYMPH # 1.9 10^3/uL (1.5-5.0); LYMPH % 33.2 % (24.0-44.0); MEAN CORPUSCULAR HEMOGLOBIN 28.5 pg (27.0-33.0); MEAN CORPUSCULAR HGB CONC 33.3 g/dl (32.0-36.5); MEAN CORPUSCULAR VOLUME 85.7 fl (80.0-96.0); MONO # 0.5 10^3/uL (0.0-0.8); MONO % 9.2 % (2.0-8.0); NEUTROPHILS # 2.9 10^3/uL (1.5-8.5); NEUTROPHILS % 49.7 % (36.0-66.0); PLATELET COUNT, AUTOMATED 132 10^3/uL (150-450); RED BLOOD COUNT 5.65 10^6/uL (4.30-6.10); WHITE BLOOD COUNT 5.8 10^3/uL (4.0-10.0)
[2024-02-15 13:15] LABS: ALBUMIN 3.9 G/DL (3.2-5.2); ALKALINE PHOSPHATASE 145 U/L (40-129); ALT/SGPT 46 U/L (7.0-40); AST/SGOT 25 U/L (<34); BILIRUBIN,TOTAL 1.5 MG/DL (0.3-1.2); BLOOD UREA NITROGEN 19 MG/DL (9-23); CALCIUM LEVEL 10.4 MG/DL (8.5-10.1); CARBON DIOXIDE LEVEL 33 MMOL/L (20-31); CHLORIDE LEVEL 103 MMOL/L (98-107); CREATININE FOR GFR 0.85 MG/DL (0.70-1.30); GLOMERULAR FILTRATION RATE > 60.0 (>60); GLUCOSE, FASTING 113 MG/DL (60-100); SODIUM LEVEL 142 MMOL/L (136-145); TOTAL PROTEIN 6.7 G/DL (5.7-8.2)
== END ==
LOC: M SFHCADAM 08:50
PROVIDERS: ATTEND Physician Assistant Medical
DX: M10.9 Gout, unspecified (principal); K76.0 Fatty (change of) liver, not elsewhere classified

== ENCOUNTER → 2024-02-16 | Outpatient (REF) | payer MEDICAID | LOC: M SFHCADAM 08:33 | PROVIDERS: ATTEND Physician Assistant Medical | DX: E83.52 Hypercalcemia (principal); Z53.9 Procedure and treatment not carried out, unspecified reason ==

== ENCOUNTER 2024-02-22 10:34 | Emergency (ER) | payer MEDICAID ==
[~2024-02-22] VITALS: Ht 160 cm; Wt 80.4 kg
[2024-02-22] MEDS: ACETAMINOPHEN 500 MG TAB PO ONE (13:50)
[2024-02-22] MEDS ORDERED: VENTAER INH (15:18)
[2024-02-22] MEDS ORDERED: ZITHTAB PO (15:18)
[2024-02-22] MEDS ORDERED: ALBU2.5V10 NEB (15:18)
[2024-02-22] MEDS ORDERED: NEBU1EAC78 MC (15:24)
[2024-02-22 15:44] VITALS: BP 107/65; TEMP 100.2; O2SAT 91
== END 2024-02-22 15:46 | disposition home or self-care (01) ==
LOC: M ED 10:34
DX: J09.X2 Influenza due to identified novel influenza A virus with other respiratory manifestations (principal); F84.0 Autistic disorder; F79 Unspecified intellectual disabilities; Z79.52 Long term (current) use of systemic steroids; Z79.02 Long term (current) use of antithrombotics/antiplatelets; Z79.2 Long term (current) use of antibiotics; Z79.899 Other long term (current) drug therapy

== ENCOUNTER → 2024-03-14 | Outpatient (CLI) | payer MEDICAID ==
[~2024-03-14] MED LIST changes: +ALBU2.5V10 NEB; +NEBU1EAC78 MC; +VENTAER INH; +ZITHTAB PO
== END ==
LOC: M ADAMS 11:22
PROVIDERS: ATTEND Physician Assistant Medical
DX: J18.9 Pneumonia, unspecified organism (principal)

== ENCOUNTER → 2024-03-14 | Outpatient (CLI) | payer MEDICAID ==
[2024-03-14 10:51] LABS: IONIZED CALCIUM 4.7 MG/DL (4.5-5.3)
[2024-03-14 17:36] LABS: PTH INTACT 24.6 PG/ML (18.5-88.0)
== END ==
LOC: M LAB 10:17
PROVIDERS: ATTEND Physician Assistant Medical
DX: E83.52 Hypercalcemia (principal)

== ENCOUNTER → 2024-03-20 | Outpatient (CLI) | payer MEDICAID | LOC: M RAD 08:57 | PROVIDERS: ATTEND Physician Assistant Medical | DX: K76.0 Fatty (change of) liver, not elsewhere classified (principal); K82.8 Other specified diseases of gallbladder; R93.89 Abnormal findings on diagnostic imaging of other specified body structures; K80.20 Calculus of gallbladder without cholecystitis without obstruction ==

== ENCOUNTER → 2024-06-03 | Outpatient (REF) | payer MEDICAID ==
[2024-06-03 13:57] LABS: ALKALINE PHOSPHATASE 152 U/L (40-129); ALT/SGPT 31 U/L (7.0-40); AST/SGOT 20 U/L (<34); BILIRUBIN,TOTAL 1.5 MG/DL (0.3-1.2); BLOOD UREA NITROGEN 16 MG/DL (9-23); CALCIUM LEVEL 10.1 MG/DL (8.5-10.1); CARBON DIOXIDE LEVEL 30 MMOL/L (20-31); CHLORIDE LEVEL 98 MMOL/L (98-107); CHOLESTEROL LEVEL 140 MG/DL (<200); CHOLESTEROL RISK RATIO 4.04 (<5); GLOMERULAR FILTRATION RATE > 90.0 (>60); GLUCOSE, FASTING 174 MG/DL (60-100); HDL CHOLESTEROL 34.6 MG/DL (>40); LDL CHOLESTEROL 80.6 MG/DL (<100); NON-HDL-C 105.4 MG/DL; POTASSIUM SERUM 3.8 MMOL/L (3.5-5.1); SODIUM LEVEL 140 MMOL/L (136-145); TOTAL PROTEIN 6.6 G/DL (5.7-8.2); TRIGLYCERIDES LEVEL 124 MG/DL (<150)
[2024-06-03 14:02] LABS: FREE T4 1.53 NG/DL (0.89-1.76); THYROID STIMULATING HORMONE 0.905 uIU/ML (0.55-4.78)
[2024-06-03 14:09] LABS: URIC ACID 5.4 MG/DL (3.7-9.2)
== END ==
LOC: M SFHCADAM 10:06
PROVIDERS: ATTEND Physician Assistant Medical
DX: M10.9 Gout, unspecified (principal); K76.0 Fatty (change of) liver, not elsewhere classified; E78.1 Pure hyperglyceridemia; E55.9 Vitamin D deficiency, unspecified

== ENCOUNTER → 2024-12-02 | Outpatient (CLI) | payer MEDICAID ==
[2024-12-02 13:45] LABS: BASO # 0.0 10^3/uL (0.0-0.2); BASO % 0.2 % (0.0-1.0); EOS # 0.1 10^3/uL (0.0-0.5); EOS % 2.6 % (0.0-3.0); LYMPH # 1.6 10^3/uL (1.5-5.0); LYMPH % 31.4 % (24.0-44.0); MONO # 0.4 10^3/uL (0.0-0.8); MONO % 8.7 % (2.0-8.0); NEUTROPHILS # 2.9 10^3/uL (1.5-8.5); NEUTROPHILS % 56.9 % (36.0-66.0); PLATELET COUNT, AUTOMATED 116 10^3/uL (150-450)
[2024-12-02 13:49] LABS: ALT/SGPT 51 U/L (7.0-40); AST/SGOT 35 U/L (<34); CALCIUM LEVEL 10.2 MG/DL (8.5-10.1); CARBON DIOXIDE LEVEL 33 MMOL/L (20-31); CHLORIDE LEVEL 100 MMOL/L (98-107); CHOLESTEROL LEVEL 145 MG/DL (<200); CHOLESTEROL RISK RATIO 3.36 (<5); CREATININE FOR GFR 0.95 MG/DL (0.70-1.30); GLOMERULAR FILTRATION RATE > 90.0 (>60); LDL CHOLESTEROL 78.9 MG/DL (<100); NON-HDL-C 101.9 MG/DL; POTASSIUM SERUM 4.0 MMOL/L (3.5-5.1); SODIUM LEVEL 142 MMOL/L (136-145); TRIGLYCERIDES LEVEL 115 MG/DL (<150)
[2024-12-02 13:50] LABS: PROLACTIN 9.65 NG/ML (2.1-17.7)
[2024-12-02 14:00] LABS: ESTIMATED AVERAGE GLUCOSE 105.0 MG/DL (60-110)
== END ==
LOC: M LABDRWAD 09:06
PROVIDERS: ATTEND Physician Assistant
DX: Z51.81 Encounter for therapeutic drug level monitoring (principal); Z79.899 Other long term (current) drug therapy